=== PATIENT | male | born 1960 | race Caucasian/White ===

== ENCOUNTER 2017-08-05 16:45 | Emergency (ER) | payer BC ==
--- NOTE | 2017-08-05 16:57 | EDM.PDOC ---
ED HPI GENERAL MEDICAL PROBLEM - General Chief Complaint: General Stated Complaint: head trauma Time Seen by Provider: 08/05/17 16:45 Source of Information: Reports: Patient History Limitations: Reports: No Limitations - History of Present Illness INITIAL COMMENTS - FREE TEXT/NARRATIVE: Patient presents to ER with a laceration to his forehead. He is currently being transported from [place] to the [facility]. He was seen in the ER there and medically cleared and was receiving a police transport. labor relations officer reports that the ride was uneventful until around [place] when the patient started thrashing and hollering and felt someone was trying to kill him. Hit his head on the plexi glass/metal enclosure in the vehicle and was bleeding from his forehead. Stopped here for treatment of the head wound. Patient did not lose consciousness. Per records, patient has a long history of psychiatric problems and is not compliant with his medications and is being committed as he is felt to be a danger to himself and others. Became psychotic in [place] and was having auditory and visual hallucinations of being in harms way, being murdered and in a fire. Patient does not answer questions when asked. Inquired about medical problems and just states "my dog". Denies being on medications but unsure if reliable answers. Onset: Today, Sudden Duration: Minutes: Location: Reports: Head Quality: Reports: Ache Severity: Mild Associated Symptoms: Reports: No Other Symptoms Past Medical History Psychiatric History: Reports: Psychosis Social & Family History - Tobacco Use Smoking Status *Q: Unknown Ever Smoked (does not answer questions) ED ROS GENERAL - Review of Systems Review Of Systems: ROS reveals no pertinent complaints other than HPI. ED EXAM, GENERAL - Physical Exam Exam: See Below Exam Limited By: Altered Mental Status General Appearance: Alert Eye Exam: Bilateral Eye: PERRL Ears: Normal External Exam, Normal TMs Nose: Normal Inspection Throat/Mouth: Normal Inspection, Normal Oropharynx Neck: Normal Inspection, Supple, Non-Tender Respiratory/Chest: Lungs Clear Cardiovascular: Regular Rate, Rhythm Neurological: Alert, Other (does not answer questions) Psychiatric: Flat Affect Skin Exam: Wound/Incision ED GENERAL MEDICAL PROCEDURES - Laceration/Wound Repair Forehead Lac/wound length in cm: 2 Appearance: Superficial, Linear Distal NVT: Neuro & Vascular Intact Skin Prep: Chlorhexidine (Hibiciens) Exploration/Debridement/Repair: Wound Explored Closed with: Dermabond, Steri-Strips Sterile Dressing Applied: Nurse Tetanus Status Addressed: Other (patient does not answer) Complications: No Departure - Departure Time of Disposition: 16:56 Disposition: DC/Tfer to Psych Hosp[facility] Clinical Impression: Laceration - Discharge Information Forms: ED Department Discharge Additional Instructions: 1. Release to police department for further transport to [facility] 2. Keep wound clean and dry
== END 2017-08-05 17:05 ==
LOC: CC.ED 16:45
DX: S01.81XA Laceration without foreign body of other part of head, initial encounter (principal); W22.8XXA Striking against or struck by other objects, initial encounter; F29 Unspecified psychosis not due to a substance or known physiological condition
CPT/HCPCS: 12011; 99283